=== PATIENT | female | born 1990 | race American Indian/Alaskan Native ===

== ENCOUNTER 2022-04-17 12:06 | Emergency (ER) | payer SELFPAY ==
[2022-04-17 13:45] VITALS: BP 99/60; PULSE 89
== END 2022-04-17 12:39 | disposition left against medical advice (07) ==
LOC: DL.ED 12:06
DX: Z53.21 Procedure and treatment not carried out due to patient leaving prior to being seen by health care provider (principal)

== ENCOUNTER 2022-07-21 16:22 | Emergency (ER) | payer MEDICAID ==
[2022-07-21 16:59] VITALS: BP 108/76; PULSE 80
[2022-07-21] MEDS ORDERED: Lidocaine 1% 10 ML MDV INJECT ONE (17:10)
[2022-07-26 12:46] LABS: C.TRACHOMATIS BY TMA Negative (Negative); N.GONORRHOEAE BY TMA Positive (Negative)
== END 2022-07-21 18:45 | disposition left against medical advice (07) ==
LOC: DL.ED 16:22
DX: Z53.21 Procedure and treatment not carried out due to patient leaving prior to being seen by health care provider (principal)
CPT/HCPCS: 36415; 81001; 87086; 87491; 87563; 87591